=== PATIENT | female | born 1980 | race Caucasian/White ===

== ENCOUNTER → 2017-11-04 11:04 | Outpatient (CLI) | payer OTHER, SELFPAY ==
[2017-11-05 11:21] LABS: Toxoplasma Gondii IgG < 3.0 IU/mL (0.0-7.1)
[2017-11-05 20:08] LABS: Barbiturates Negative ng/mL (Cutoff=300); Cannabinoid Negative ng/mL (Cutoff=50); Cocaine Negative ng/mL (Cutoff=300); Phencyclidine Negative ng/mL (Cutoff=25)
[2017-11-08 13:00] LABS: Amphetamines Negative ng/mL (Cutoff=1000); Hep C Antibodies <0.1 s/co ratio (0.0-0.9); Opiates Negative ng/mL (Cutoff=300); Toxoplasma Gondii IgM < 3.0 AU/mL (0.0-7.9)
== END ==
LOC: WOBLAB 11:10
PROVIDERS: Visit Provider Obstetrics & Gynecology
DX: Z34.81 Encounter for supervision of other normal pregnancy, first trimester (principal)
CPT/HCPCS: 36415; 80307; 86777; 86778; 86803

== ENCOUNTER 2018-05-26 06:55 | Inpatient (IN) | payer OTHER, SELFPAY ==
[2018-05-26 07:26] VITALS: BMI 33.7
[2018-05-26] MEDS: Lactated Ringers 1,000 ML 50 ML IV ×2 (07:45→11:47)
[2018-05-26 07:53] LABS: Hematocrit 38.9 % (37-47); Mean Corp Hgb Conc 33.4 g/gl (32-36); Mean Corpuscular Hgb 31.9 pg (27.0-32.0); Mean Corpuscular Volume 95.6 fL (81-99); Mean Platelet Vol. 10.9 fl (6.2-12.0); Platelet Count 156 K/mm3 (150-450); RBC Distribution Width CV 13.6 % (11.6-14.6); RBC Distribution Width SD 45.8 fl (35.1-43.9); Red Blood Count 4.07 M/mm3 (4.2-5.4); Scan Indicated on CBC? Y/N NO; White Blood Count 9.6 K/mm3 (4.4-11.0)
[2018-05-26] MEDS: Oxytocin 30 units/NS 500 ml 30 UNITS/500 ML IV.SOLN IV (07:56)
[2018-05-26] MEDS: fentaNYL-bupivacaine (epidural) 100 ML BAG EPIDURAL (15:55)
[2018-05-26] MEDS: Oxytocin 30 units/NS 500 ml 30 UNITS/500 ML IV.SOLN 334 UNITS IV (20:07)
[2018-05-26] MEDS: Oxytocin 30 units/NS 500 ml 30 UNITS/500 ML IV.SOLN 167 UNITS IV (20:40)
--- NOTE | 2018-05-26 21:14 | PCM.OB.VAG ---
- Problem List (1) 40 weeks gestation of Status: Acute (2) (spontaneous vaginal delivery) Status: Acute Vaginal Delivery Maternal Presentation: Elective Induction Method of Induction: Pitocin, Amniotomy Amniotic Membrane Rupture Type: Artificial Amniotic Fluid Description: Thick meconium Final CLIFTON: 05/26/18 Final CLIFTON Source: US <20 weeks Gestational age: 40 Weeks and 0 Days Semmes doctor who attended delivery (if requested by OB): Vicki Swift Date of Procedure: 05/26/18 Pre-Operative Diagnosis: 40wga Post-Operative Diagnosis: 40wga Surgery/ Procedure Performed: Spontaneous Vaginal Delivery Anesthesiologist: Kevin Us Type of Anesthesia: Epidural Description of Procedure: Patient was FD/+2 station on my arrival. She pushed to deliver a vigorous female infant in direct OA. The was placed on the maternal abdomen and further attended by nursery personnel and Pediatric Hospitalist. The cord was doubly clamped and cut at approximately 4 minutes of life. Cord gases were obtained. The placenta delivered spontaneously and appeared intact on inspection. An intrauterine exam was performed. A first degree perineal laceration was repaired with 3-0 Vicryl Rapide. Sponge and needle counts were correct x 2. Presentation: Vertex Placental Delivery Description: Spontaneous Placenta Disposition: [facility] Cord Vessel Description: 3 Vessels Nuchal Cord Compression: Without compression Cord Gases drawn per routine: ABG, VBG Cord Entanglement: None Drain: Spence to straight drain Estimated Blood Loss: 350 ml Infant A gender: Female (1 minute): 8 (5 minute): 10 Episiotomy Description: None Laceration: Midline, Perineal Extension/lac, Vaginal Extension/lac, 1st degree Medications given after delivery: IV Pitocin Complications: None
--- NOTE | 2018-05-26 21:23 | DCINST_ITS ---
Discharge Diet: No Restrictions Discharge Activity: Return to Normal Activity, May Shower, May Take a Tub Bath May resume sexual activity in: 6 weeks Lifting Restrictions: 20 lb Call your doctor if you observe: Fever of 101 or Higher, Inability to urinate, Inability to have a bowel movement, Using more than one pad per hour, Shortness of breath, Chest pain, Calf discomfort, Uncontrolled pain, - - Severe persistent headache Additional Instructions: If you experience any of the following, contact your healthcare provider. * Bleeding that soaks a pad every hour for 2 hours * Fever 100.4 or higher * Unrelieved incision or abdominal pain * Swelling, redness, discharge or bleeding from your incision or episiotomy site * Your incision begins to separate * Problems urinating (including inability to urinate or burning while urinating). * Visual changes * Severe headache * Flu-like symptoms * Pain or redness in one of both of your breasts * Pain, warmth, tenderness or swelling in your legs, especially the calf area * Frequent nausea and vomiting * Symptoms of depression or anxiety If you experience any of the following, call 911 or go to the nearest Emergency Room. * Chest pain * Problems breathing * Seizure activity * Partial or complete paralysis of a body part, slurred speech, weakness or drooping of the face, or a sudden inability to walk or hold your balance Allergies/Adverse Reactions: Allergies codeine Allergy (Verified 05/26/18 07:29) Anaphylaxis latex Allergy (Verified 05/26/18 07:36) Rash Medications to take at Discharge Albuterol Sulfate [Proair Respiclick] 90 mcg IH Q4H PRN PRN 05/26/18 Cetirizine HCl [Zyrtec] 10 mg PO DAILY 05/26/18 Famotidine PRN 05/26/18 Fish Oil 1,000 mg Capsule 1,000 mg PO DAILY 05/26/18 Ibuprofen 600 mg PO TID PRN #30 tablet 05/26/18 Magnesium 250 mg PO DAILY 05/26/18 One Daily Tablet 1 tab PO DAILY 05/26/18 Vitamin B-6 100 mg PO DAILY 05/26/18 The following prescriptions were given: Ibuprofen 600 mg PO TID PRN #30 tablet PRN Reason: Pain Please Follow Up With: Phi Fisher MD When: 1-2 weeks Primary Care Physician: Brooks,Sherrie, PA [Primary Care Provider] - Test Results: Test results from this visit will be discussed in further detail at your follow- up appointment, if applicable.
[2018-05-26 23:47] VITALS: BP 100/29; PULSE 66; RESP 18; TEMP 36.6
[2018-05-27] MEDS: Ibuprofen 600 MG Tablet PO ×2 (01:45→16:41)
[2018-05-27 04:05] VITALS: BP 105/32; PULSE 128; RESP 18; TEMP 36.6
--- NOTE | 2018-05-27 09:14 | PCM.PN.OB ---
Patient Problems: Active and Suspected Problems 40 weeks gestation of (Acute) (spontaneous vaginal delivery) (Acute) Subjective: Patient without complaints. Minimal vaginal bleeding. Feeling well. - Physical Exam Vital Signs Temp Pulse Resp BP 97.9 F 128 H 18 105/32 L 05/27/18 04:05 05/27/18 04:05 05/27/18 04:05 05/27/18 04:05 Weight: 209 lb 3.499 oz Body Mass Index (BMI) 33.7 Intake and Output for Last 24 Hours 05/25/18 05/26/18 05/27/18 23:59 23:59 23:59 Intake Total 2805 / 2805 Output Total 0 / 2050 600 / 600 Balance 755 / 755 -600 / -600 Medical Necessity - Tobacco Use Smoking Status: Never smoker Assessment/Plan All Active Problems 40 weeks gestation of (Acute) (spontaneous vaginal delivery) (Acute) Doing well day #1. Continuing present care.
[2018-05-27 09:26] VITALS: BP 98/45; PULSE 78; RESP 16; TEMP 36.8; O2SAT 99
[2018-05-27] MEDS: Prenatal Vits Tablet 1 TABLET PO (10:00)
[2018-05-27] MEDS: Loratadine 10 MG Tablet PO (10:00)
[2018-05-27 12:00] VITALS: BP 96/45; PULSE 79; RESP 16; TEMP 36.7
[2018-05-27 16:00] VITALS: BP 104/52; PULSE 78; RESP 16; TEMP 36.7
[2018-05-27 20:09] VITALS: BP 99/54; PULSE 78; RESP 16; TEMP 36.4
[2018-05-28 01:21] VITALS: BP 100/63; PULSE 86; RESP 16; TEMP 37.2
[2018-05-28 04:00] VITALS: BP 127/31; PULSE 60; RESP 15
[2018-05-28] MEDS: Ibuprofen 600 MG Tablet PO (04:09)
--- NOTE | 2018-05-28 08:37 | PCM.PN.OB ---
Patient Problems: Active and Suspected Problems 40 weeks gestation of (Acute) (spontaneous vaginal delivery) (Acute) Subjective: No issues overnight. Denies heavy lochia. Voiding without difficulty. Bottlefeeding. Michelle feels well today. Objective: avss - Physical Exam General: Alert, Oriented x3, Cooperative, No apparent distress HEENT: Atraumatic, Normocephalic Lungs: Clear to auscultation, Normal air movement Cardiovascular: Regular rate, Regular Rhythm, Normal S1, Normal S2 Abdomen: Soft, Non Tender, Non-Distended, - - Fundus firm and nontender at 3 FW below umbilicus Extremities: No edema, No Calf Tenderness Neurological: Neuro grossly intact Psych/Mental Status: Normal Affect, Appropriate, Alert and oriented to time, place, person, mood and affect Vital Signs Temp Pulse Resp BP Pulse Ox 98.9 F 60 15 127/31 H 99 05/28/18 01:21 05/28/18 04:00 05/28/18 04:00 05/28/18 04:00 05/27/18 09:26 Oxygen Delivery Method Room Air Weight: 94.9 kg Body Mass Index (BMI) 33.7 Intake and Output for Last 24 Hours 05/26/18 05/27/18 05/28/18 23:59 23:59 23:59 Intake Total 2805 / 2805 Output Total 2049 / 2049 600 / 600 Balance 755 / 755 -600 / -600 Medical Necessity - Tobacco Use Smoking Status: Never smoker Assessment/Plan All Active Problems 40 weeks gestation of (Acute) (spontaneous vaginal delivery) (Acute) 38yo P2 PPD#2 s/p doing well. -B positive -Bottlefeeding -Routine care -d/c home today
[2018-05-28 10:00] VITALS: BP 103/44; PULSE 65; RESP 16; TEMP 36.3
[2018-05-28] MEDS: Loratadine 10 MG Tablet PO (10:24)
[2018-05-28] MEDS: Senna/Docusate Sodium 1 Tablet PO (10:24)
[2018-05-28] MEDS: Prenatal Vits Tablet 1 TABLET PO (10:27)
--- NOTE | 2018-05-28 12:24 | NURSING ---
1130 Discharged to car via wheelchair with baby in car seat in her lap. States she is eager to go home and feels able to care for herself and her baby. Denied questions or concerns.
== END 2018-05-28 11:30 | disposition home or self-care (01) | DRG 807 ==
PROVIDERS: Admitting Provider Obstetrics & Gynecology; Family Provider Physician Assistant; PCP Physician Assistant; Referring Provider Obstetrics & Gynecology; Visit Provider Obstetrics & Gynecology
DX: O77.0 Labor and delivery complicated by meconium in amniotic fluid (principal); Z37.0 Single live birth; Z3A.40 40 weeks gestation of pregnancy; O70.0 First degree perineal laceration during delivery
CPT/HCPCS: 59025; 59050; 85027; 86850; 86900; 99218; J7120; G0378

== ENCOUNTER → 2019-11-15 | Outpatient (CLI) | payer BC, SELFPAY ==
[2019-11-15 20:47] LABS: Chlamydia Trachomatis by PCR Negative (Negative)
[2019-11-15 20:48] LABS: Neisserai gonorrhoeae by PCR Negative (Negative); Probe Check PASS; Sample Adequacy Control PASS; Specimen Processing Control PASS
== END | disposition home or self-care (01) ==
PROVIDERS: Visit Provider Obstetrics & Gynecology
DX: Z11.3 Encounter for screening for infections with a predominantly sexual mode of transmission (principal)
CPT/HCPCS: 87491; 87591

== ENCOUNTER → 2020-05-07 | Outpatient (CLI) | payer BC, SELFPAY | END | disposition home or self-care (01) | LOC: LABSPEC 05-08 10:07 | PROVIDERS: Visit Provider Obstetrics & Gynecology | DX: Z36.85 Encounter for antenatal screening for Streptococcus B (principal) | CPT/HCPCS: 87081 ==

== ENCOUNTER → 2020-05-20 09:00 | Outpatient (CLI) | payer BC, SELFPAY | PROVIDERS: PCP Physician Assistant; Referring Provider Obstetrics & Gynecology; Visit Provider Obstetrics & Gynecology | DX: Z11.59 Encounter for screening for other viral diseases (principal) | CPT/HCPCS: 87635; C9803; U0003 ==

== ENCOUNTER 2020-05-29 14:30 | Outpatient (CLI) | payer BC, SELFPAY ==
[2020-05-29 14:48] VITALS: BMI 35.3
[2020-05-29 14:50] VITALS: BP 128/62; PULSE 74; TEMP 36.6; O2SAT 99
--- NOTE | 2020-06-17 09:21 | OB.TRI.NOTE ---
- Problem List (1) 39 weeks gestation of Status: Acute History of Present Illness Reason For Visit: NST Date of Service: 05/29/20 Final CLIFTON: 05/31/20 Final CLIFTON Source: US <20 weeks Gestational age: 39 Weeks and 5 Days History of Present Illness: presents for scheduled NST Allergies codeine Allergy (Verified 05/29/20 14:47) Anaphylaxis latex Allergy (Verified 05/29/20 14:47) Rash Physical Exam Vitals: Vital Signs Temp Pulse BP Pulse Ox 97.8 F 74 128/62 H 99 05/29/20 14:50 05/29/20 14:50 05/29/20 14:50 05/29/20 14:50 NST - FHR Rate Baby A Baseline: 120 Variability:: Moderate Accelerations:: 15 x 15 Decelerations:: None NST Reactive:: Yes FHR Category:: Category I Uterine Activity:: 1-2/10 min Impression/Plan 39 5/7wga, Cat I FHR -d/c home
== END 2020-05-29 15:25 | disposition home or self-care (01) ==
LOC: WPOUT 14:44 → OBT 14:44
PROVIDERS: PCP Physician Assistant; Referring Provider Obstetrics & Gynecology; Visit Provider Obstetrics & Gynecology
DX: Z34.93 Encounter for supervision of normal pregnancy, unspecified, third trimester (principal)
CPT/HCPCS: 59025

== ENCOUNTER 2020-05-30 12:20 | Inpatient (IN) | payer BC, SELFPAY ==
[2020-05-29 14:48] VITALS: BMI 35.3
[2020-05-30] VITALS (29 sets, daily range): BP systolic 94–125; BP diastolic 43–67; PULSE 57–90; TEMP 36.3–37.2; O2SAT 92–100; BMI 35.3
[2020-05-30] MEDS: Lactated Ringers 1,000 ML 50 ML IV (13:00)
[2020-05-30] MEDS: Oxytocin 30 units/NS 500 ml 30 UNITS/500 ML IV.SOLN IV (13:23)
[2020-05-30 13:27] LABS: Absolute Lymphocyte Count 1.22 X10^3/uL (0.83-4.51); Absolute Neutrophil Count 6.9 X10^3/uL (2.0-7.7); Basophil# 0.03 X10^3/uL; Basophil% 0.3 % (0-1); Eosinophil# 0.16 X10^3/uL; Eosinophils% 1.8 % (0-5); Hematocrit 37.5 % (37-47); Hemoglobin 11.9 g/dL (12.0-15.0); Lymphocyte # 1.22 X10^3/ul (4.0); Lymphocyte % 13.7 % (19-41); Mean Corp Hgb Conc 31.7 g/dL (32-36); Mean Corpuscular Hgb 29.8 pg (27.0-32.0); Mean Platelet Vol. 11.1 fl (6.2-12.0); Monocyte# 0.48 X10^3/uL; Monocyte% 5.4 % (0-10); NRBC Flagged by Analyzer 0 % (0-5); Neutrophil % 77.6 % (47-70); Platelet Count 166 K/mm3 (150-450); RBC Distribution Width CV 13.3 % (11.6-14.6); Red Blood Count 3.99 M/mm3 (4.2-5.4); White Blood Count 8.9 K/mm3 (4.4-11.0)
--- NOTE | 2020-05-30 18:03 | PCM.HPOB.BLA ---
History and Physical Date of Admission: 05/30/20 Chief complaint: Induction of labor at term History of present illness: 40-year-old at 39 weeks and 6 days with CLIFTON: 05/31/2020 by LMP confirmed with 11-week ultrasound arrives for induction of labor at term. Denies headache, visual changes, nausea vomiting, chest pain, shortness of breath, right upper quadrant pain. Patient states good movement. Obstetric history G1: 39-week male 08/09/2005 G2: SAB G3: 40-week female 05/26/2018 G4: Current Obstetric complications: AMA Past medical history: Asthma, migraines Past surgical history: None Medications:: vitamin, albuterol, Pepcid Allergies: Codeine, latex Social: Denies smoking, alcohol use, drug use Review of systems: Besides the above pertinent positives a full review of systems was performed and found to be negative Physical exam: Vital Signs Temp Pulse BP Pulse Ox 05/30/20 18:02 97.9 F 68 111/56 L 100 05/30/20 17:11 98.0 F 82 100 05/30/20 17:10 81 114/56 L 05/30/20 16:18 82 113/56 L 05/30/20 16:17 98.6 F 82 98 05/30/20 15:07 98.7 F 80 106/54 L 100 05/30/20 14:05 74 102/53 L 98 05/30/20 13:31 97.8 F 72 99 05/30/20 12:52 75 116/64 05/30/20 12:51 97.6 F L 75 100 General: Normal-appearing no acute distress HEENT: Normocephalic atraumatic no cervical lymphadenopathy Cardiac: Regular rate and rhythm no murmurs rubs or gallops Lungs: Clear to auscultation bilaterally no wheezes rales or crackles Abdomen: Soft, nontender, gravid. Positive bowel sounds Pelvic: Cervical exam /-2 FHT: 120/mod lauren/+accel/-decel [place]: few ctx Extremities: No peripheral edema normal peripheral pulses Psych: Normal affect normal demeanor nonpressured speech Mom's Labs & Results 05/30/20 05/30/20 13:00 13:00 WBC 8.9 RBC 3.99 L Hgb 11.9 L Hct 37.5 MCV 94.0 MCH 29.8 MCHC 31.7 L RDW Std Deviation 46.0 H RDW Coeff of Lauren 13.3 Plt Count 166 MPV 11.1 Immature Gran % (Auto) 1.200 H Neut % (Auto) 77.6 H Lymph % (Auto) 13.7 L [place]elope % (Auto) 5.4 Eos % (Auto) 1.8 Baso % (Auto) 0.3 Absolute Neuts (auto) 6.9 Absolute Lymphs (auto) 1.22 Nucleated RBC % 0 Blood Type B POSITIVE Antibody Screen NEGATIVE Labs Blood Type: B RH: POSITIVE RPR/VDRL/Syphilis Nonreactive Rubella status Immune HbSAg Negative Date Done: 12/19/19 Chlamydia Negative Gonorrhea Negative HIV/AIDS Non-Reactive Group B Strep: Negative Assessment plan: 40-year-old at 39 weeks and 6 days for induction of labor at term -Admit labor and delivery -CEFM -GBS neg -Pitocin induction -Anesthesia to see
[2020-05-30] MEDS: Lactated Ringers 500 ML 999 ML IV ×2 (19:35→22:38)
[2020-05-30] MEDS: fentaNYL-bupivacaine (epidural) 100 ML BAG EPIDURAL (20:08)
[2020-05-30] MEDS: Lactated Ringers 1,000 ML 200 ML IV (23:59)
[2020-05-31] VITALS (26 sets, daily range): BP systolic 86–112; BP diastolic 34–59; PULSE 64–85; RESP 16–18; TEMP 36.2–37.2; O2SAT 96–100
[2020-05-31] MEDS: fentaNYL-bupivacaine (epidural) 100 ML BAG EPIDURAL (00:15)
[2020-05-31] MEDS: Mag Hydrox/Al Hydrox/Simeth 30 ML UDC PO (04:34)
[2020-05-31] MEDS: Oxytocin 30 units/NS 500 ml 30 UNITS/500 ML IV.SOLN 334 UNITS IV (05:12)
--- NOTE | 2020-05-31 05:24 | OP.PCM_ITS ---
Vaginal Delivery Date of Procedure: 05/31/20 Pre-Operative Diagnosis: Term Post-Operative Diagnosis: Term Surgery/ Procedure Performed: Spontaneous Vaginal Delivery Type of Anesthesia: Epidural Description of Procedure: Normal spontaneous vaginal delivery of a male , vertex direct OP. Head and shoulders delivered with ease. Cord cut and clamped baby handed off to nursing. Placenta delivered via cord traction and fundal massage. Second- degree laceration noted and repaired in typical fashion. EBL 350 cc Apgars 8/9
--- NOTE | 2020-05-31 05:27 | DCINST_ITS ---
Discharge Diet: No Restrictions Discharge Activity: Return to Normal Activity, No Restrictions, May Drive, May Shower May resume sexual activity in: 2 weeks Weight Bearing Status: Weight bearing as tolerated Call your doctor if your incision/area has: Foul Smelling Discharge Call your doctor if you observe: Fever of 101 or Higher, Shortness of breath, Chest pain Additional Instructions: If you experience any of the following, contact your healthcare provider. * Bleeding that soaks a pad every hour for 2 hours * Fever 100.4 or higher * Unrelieved incision or abdominal pain * Swelling, redness, discharge or bleeding from your incision or episiotomy site * Your incision begins to separate * Problems urinating (including inability to urinate or burning while urinating). * Visual changes * Severe headache * Flu-like symptoms * Pain or redness in one of both of your breasts * Pain, warmth, tenderness or swelling in your legs, especially the calf area * Frequent nausea and vomiting * Symptoms of depression or anxiety If you experience any of the following, call 911 or go to the nearest Emergency Room. * Chest pain * Problems breathing * Seizure activity * Partial or complete paralysis of a body part, slurred speech, weakness or drooping of the face, or a sudden inability to walk or hold your balance Allergies/Adverse Reactions: Allergies codeine Allergy (Verified 05/29/20 14:47) Anaphylaxis latex Allergy (Verified 05/29/20 14:47) Rash Medications to take at Discharge Albuterol Sulfate [Proair Respiclick] 90 mcg IH Q4H PRN PRN 05/26/18 Cetirizine HCl [Zyrtec] 10 mg PO DAILY 05/26/18 Famotidine 20 mg PO DAILY 05/26/18 Fish Oil 1,000 mg Capsule 1,000 mg PO DAILY 05/26/18 Vits [Prenatabs FA ] 1 tab PO DAILY 05/29/20 Please Follow Up With: Trae Velásquez MD When: 6 weeks Primary Care Physician: Sherrie Brooks PA [Primary Care Provider] - Test Results: Test results from this visit will be discussed in further detail at your follow- up appointment, if applicable.
[2020-05-31] MEDS: Ibuprofen 600 MG Tablet PO ×3 (07:18→22:14)
--- NOTE | 2020-05-31 07:52 | NURSING ---
epidural catheter removed. blue tip intact.
[2020-05-31] MEDS: 0.9% Saline Lock 10 ML Syringe IV (08:12)
--- NOTE | 2020-05-31 11:41 | NURSING ---
void missed hat
[2020-05-31] MEDS: Acetaminophen 500 MG Tablet 1000 MG PO ×2 (15:57→23:48)
--- NOTE | 2020-05-31 16:05 | NURSING ---
PT UP TO BRP VOID 100 ML. STATES HAS NOT DRANK MUCH THIS AFTERNOON. RN ENCOURAGED TO DRINK FULL PITCHER.
--- NOTE | 2020-05-31 17:48 | NURSING ---
pt denies feeling dizzy or light headed. states blood pressure has run low throughout . pt's other vs remain within normal limits. fundus is firm, bleeding is wnl.
[2020-06-01 04:55] VITALS: BP 93/35; PULSE 69; RESP 16; TEMP 36.2
[2020-06-01] MEDS: Ibuprofen 600 MG Tablet PO (04:55)
[2020-06-01 08:00] VITALS: BP 101/49; PULSE 73; RESP 14; TEMP 36.3
--- NOTE | 2020-06-01 09:05 | PCM.PN.OB ---
Subjective: c/o pressure and discomfort from hemorrhoids. She has hx thrombosed hemorrhoid in college associated with IBS-C, since then these bother her periodically. Denies heavy lochia. She is . Desires discharge to home today. Objective: AVSS - Physical Exam Vitals/I&O's: Vital Signs Temp Pulse Resp BP Pulse Ox 97.3 F L 73 14 101/49 L 99 06/01/20 08:00 06/01/20 08:00 06/01/20 08:00 06/01/20 08:00 05/31/20 15:58 Oxygen Delivery Method Room Air Weight: 99.3 kg Body Mass Index (BMI) 35.3 Intake and Output for Last 24 Hours 05/30/20 05/31/20 06/01/20 23:59 23:59 23:59 Intake Total 1895.60 / 1895.60 2902.93 / 2902.93 Output Total 2400 / 2400 Balance 1895.60 / 1895.60 502.93 / 502.93 General: Alert, Oriented x3, Cooperative, No apparent distress HEENT: Atraumatic, Normocephalic Lungs: Clear to auscultation, Normal air movement Cardiovascular: Regular rate, Regular Rhythm, Normal S1, Normal S2 Abdomen: Soft, Non Tender, Non-Distended, - - Fundus firm and nontender Extremities: No edema, No Calf Tenderness Neurological: Neuro grossly intact Psych/Mental Status: Normal Affect, Appropriate, Alert and oriented to time, place, person, mood and affect Current Medications Acetaminophen (Acetaminophen 500 Mg Tablet) 1,000 mg PO Q8H PRN PRN PRN Reason: Pain Score 1-10 Last Admin: 05/31/20 23:48 Dose: 1,000 mg Documented by: Bisacodyl (Bisacodyl 10 Mg Suppository) 10 mg RECTAL UD PRN PRN Reason: If no BM Dibucaine (Dibucaine 30 Gm Tube) 1 applic TOPICAL TID PRN PRN; Protocol PRN Reason: Discomfort Hydrocortisone (Hydrocortisone 2.5% Crm) 1 applic TOPICAL TID PRN PRN; Protocol PRN Reason: Discomfort Ibuprofen (Ibuprofen 600 Mg Tablet) 600 mg PO Q6H PRN PRN PRN Reason: Pain Score 1-10 Last Admin: 06/01/20 04:55 Dose: 600 mg Documented by: Ondansetron HCl (Ondansetron 4 Mg/2 Ml Vial) 4 mg IV Q4H PRN PRN PRN Reason: Nausea Senna/Docusate Sodium (Senna/Docusate Sodium 1 Tablet) 1 - 2 tablet PO DAILY PRN PRN PRN Reason: Constipation Simethicone (Simethicone 80 Mg Tablet) 80 mg PO PCHS PRN PRN Reason: Indigestion/Stomach pain Sodium Chloride (0.9% Saline Lock 10 Ml Syringe) 5 - 15 ml IV UD PRN PRN Reason: SALINE FLUSH Last Admin: 05/31/20 08:12 Dose: 10 ml Documented by: Medical Necessity - Tobacco Use Smoking Status: Never smoker Assessment/Plan All Active Problems 40 weeks gestation of (Acute) (spontaneous vaginal delivery) (Acute) 40yo [id number] PPD#1 s/p -Hemorrhoidal care reviewed, pt encouraged to call office if worsening of sx -Rh positive -Routine care -d/c home today
--- NOTE | 2020-06-01 09:11 | DCINST_ITS ---
Discharge Diet: No Restrictions Discharge Activity: Return to Normal Activity, No Restrictions, May Drive, May Shower, May Take a Tub Bath May resume sexual activity in: 4-6 weeks Call your doctor if your incision/area has: Foul Smelling Discharge Call your doctor if you observe: Fever of 101 or Higher, Inability to urinate, Inability to have a bowel movement, Using more than one pad per hour, Shortness of breath, Chest pain, Calf discomfort, Uncontrolled pain Additional Instructions: If you experience any of the following, contact your healthcare provider. * Bleeding that soaks a pad every hour for 2 hours * Fever 100.4 or higher * Unrelieved incision or abdominal pain * Swelling, redness, discharge or bleeding from your incision or episiotomy site * Your incision begins to separate * Problems urinating (including inability to urinate or burning while urinating). * Visual changes * Severe headache * Flu-like symptoms * Pain or redness in one of both of your breasts * Pain, warmth, tenderness or swelling in your legs, especially the calf area * Frequent nausea and vomiting * Symptoms of depression or anxiety If you experience any of the following, call 911 or go to the nearest Emergency Room. * Chest pain * Problems breathing * Seizure activity * Partial or complete paralysis of a body part, slurred speech, weakness or drooping of the face, or a sudden inability to walk or hold your balance Allergies/Adverse Reactions: Allergies codeine Allergy (Verified 05/29/20 14:47) Anaphylaxis latex Allergy (Verified 05/29/20 14:47) Rash Medications to take at Discharge Albuterol Sulfate [Proair Respiclick] 90 mcg IH Q4H PRN PRN 05/26/18 Cetirizine HCl [Zyrtec] 10 mg PO DAILY 05/26/18 Fish Oil 1,000 mg Capsule 1,000 mg PO DAILY 05/26/18 Vits [Prenatabs FA ] 1 tab PO DAILY 05/29/20 Ibuprofen [Motrin] 600 mg PO Q8H PRN #30 tab 06/01/20 The following prescriptions were given: Ibuprofen [Motrin] 600 mg PO Q8H PRN #30 tab PRN Reason: Pain Score 1-10 Transmission Status: Pending to [id number] Please Follow Up With: Trae Velásquze MD When: 6 weeks Primary Care Physician: Sherrie Brooks, PA [Primary Care Provider] - Test Results: Test results from this visit will be discussed in further detail at your follow- up appointment, if applicable.
--- NOTE | 2020-06-01 10:30 | CASEMGMT ---
Social Work Assessment Labor and Delivery Unit Date of Referral: 05/31/2020 Time of Referral: 10:24 Referred By: Dr. Trae Velásquez Date of Intervention: 06/01/2020 Time of Intervention: 10:30 Reason for Referral: Mother of baby (MOB) with history of Anxiety. History obtained from: MOB, Father of baby (FOB), chart, nursing staff. Household composition: MOB, FOB, Yuriy Hernandez (age 15), Ashley Hernandez (age 2) and now this , Rob Hernandez have own home together. All three children share paternity and maternity. Patient's parent/guardian status: MOB and FOB (Jose Antonio Hernandez) have been for the past 3 years. was not planned but accepted. Medical History: MOB with history prior to this infant. MOB with history of Anxiety. MOB with vaginal delivery. born on 05/31/2019 with apgars of 8 and 9 at 1min and 5min. Infant with birthweight of 3807g. MOB plans to bottle feed infant. MOB with appropriate care visits. Infant to follow with Dr. Sherrie Brooks. Educational Status: MOB denies any issues/concerns with comprehension or understanding. Financial Status: MOB is a homemaker. FOB works full-time outside of the home and will have a few weeks off. Infant Supplies: MOB reports to have needed infant supplies including a car seat and crib etc. Childcare/Caregiver(s): MOB plans to be primary caregiver for and other children in the home. Other children are currently being cared for by family. Transportation: Denies any issues or concerns. Programs/Agencies Involved: No active community resources. MOB denies need for WIC, Help Me Grow etc. Children Services/Legal Issues: Denies history of children services or legal issues. Mental Health History: MOB with history of Anxiety. MOB denies current counseling or medication to manage mental health. MOB reports to ?self-regulate.? MOB able to identify positive coping skills to this director social welfare. MOB and this director social welfare engaged in conversation about depression signs and symptoms. MOB denies history of depression with prior pregnancies. MOB denies suicidal thoughts/plans/intents or history of. Substance Use History: MOB and FOB deny substance abuse/use. Maternal and Infant Drug Screens: None obtained. PHQ9: Did not trigger. Family/Social Stressors: MOB denies current family/social stressors. Support Systems: MOB reports to have needed support from extended family and FOB. Depression and Anxiety/Shaken Baby/Safe Sleeping: MOB provided with resources for depression/anxiety, shaken baby, safe sleeping, and [facility] resource [facility]. MOB with appropriate response to prompts for safe sleeping and shaken baby. ASSESSMENT: This director social welfare met with MOB, FOB and in room. MOB holding infant during interaction. MOB agreeable to speak with this director social welfare. MOB provided verbal permission for this director social welfare to speak openly with FOB present. MOB denies concerns for home going. MOB and FOB report to have connection with . MOB with appropriate and engaged affect throughout assessment. PLAN: Infant to discharge to home with MOB, FOB, and other siblings. No other services requested or indicated. Kindra OLIVAS, RIKY
== END 2020-06-01 11:35 | disposition home or self-care (01) | DRG 807 ==
PROVIDERS: Admitting Provider Obstetrics & Gynecology; PCP Physician Assistant; Referring Provider Obstetrics & Gynecology; Visit Provider Obstetrics & Gynecology
DX: O99.52 Diseases of the respiratory system complicating childbirth (principal); Z37.0 Single live birth; J45.909 Unspecified asthma, uncomplicated; Z3A.39 39 weeks gestation of pregnancy; O70.1 Second degree perineal laceration during delivery; O22.43 Hemorrhoids in pregnancy, third trimester; K58.1 Irritable bowel syndrome with constipation; O99.62 Diseases of the digestive system complicating childbirth
CPT/HCPCS: 59025; 59050; 76815; 85025; 86850; 86900; 86901; 99218; J7120; A4216; G0378

== ENCOUNTER → 2020-07-09 | Outpatient (CLI) | payer BC, SELFPAY ==
[2020-05-30 12:28] VITALS: BMI 35.3
[2020-07-17 08:19] LABS: HPV APTIMA, High Risk Positive (Negative); HPV Reflexed? YES, CHARGE PATIENT
== END | disposition home or self-care (01) ==
LOC: LABSPEC 07-11 08:54
PROVIDERS: PCP Physician Assistant; Visit Provider Obstetrics & Gynecology
DX: Z12.4 Encounter for screening for malignant neoplasm of cervix (principal); R87.612 Low grade squamous intraepithelial lesion on cytologic smear of cervix (LGSIL)
CPT/HCPCS: 87624; 88175; G0145

== ENCOUNTER 2021-10-09 14:37 | Outpatient (CLI) | payer BC, SELFPAY ==
[2021-10-09 15:04] LABS: Absolute Lymphocyte Count 1.31 X10^3/uL (0.83-4.51); Absolute Neutrophil Count 7.2 X10^3/uL (2.0-7.7); Basophil# 0.03 X10^3/uL; Basophil% 0.3 % (0-1); Eosinophil# 0.14 X10^3/uL; Eosinophils% 1.5 % (0-5); Hematocrit 38.4 % (37-47); Hemoglobin 13.2 g/dL (12.0-15.0); Lymphocyte # 1.31 X10^3/ul (0.83-4.51); Lymphocyte % 14.3 % (19-41); Mean Corp Hgb Conc 34.4 g/dL (32-36); Mean Corpuscular Hgb 31.4 pg (27.0-32.0); Mean Corpuscular Volume 91.4 fL (81-99); Mean Platelet Vol. 10.4 fl (6.2-12.0); Monocyte# 0.47 X10^3/uL; Monocyte% 5.1 % (0-10); NRBC Flagged by Analyzer 0 % (0-5); Neutrophil # 7.18 X10^3/uL (2.7-7.7); Neutrophil % 78.5 % (47-70); Platelet Count 218 K/mm3 (150-450); RBC Distribution Width CV 12.6 % (11.6-14.6); RBC Distribution Width SD 41.7 fl (35.1-43.9); White Blood Count 9.2 K/mm3 (4.4-11.0)
[2021-10-09 15:06] LABS: Color, Urine Yellow (Yellow); Glucose, Dipstick 50 mg/dl (Normal); Ketone-Dipstick Negative (Negative); Leukocyte Esterase-Dipstick 100 /ul (Negative); Nitrite-Dipstick Negative (Negative); Occult Blood-Urine Negative /ul (Negative); Protein-Dipstick Negative (Negative); Urine Bilirubin Dipstick Negative (Negative); Urine Clarity Clear (Clear); Urine Urobilinogen Normal (Normal)
[2021-10-09 15:21] LABS: Amphetamine Urine VISTA NEGATIVE (<1000 ng/mL); Barbiturate Urine VISTA NEGATIVE (< 200 ng/mL); Benzodiazepine Urine VISTA NEGATIVE (< 200 ng/mL); Cocaine Urine VISTA NEGATIVE (< 300 ng/mL); Ecstacy Urine VISTA NEGATIVE (< 500 ng/mL); Methadone Urine VISTA NEGATIVE (< 300 ng/mL); PCP Urine VISTA NEGATIVE (< 25 ng/mL); THC Urine VISTA NEGATIVE (< 50 ng/mL); Vista UDS pH Range 7
[2021-10-09 15:53] LABS: Thyroid Stim Hormone (TSH) 1.23 uIU/mL (0.358-3.74)
[2021-10-10 10:22] LABS: HIV - WCH Non-Reactive (Nonreactive); Hepatitis B Surface Antigen Non-Reactive (Nonreactive); Hepatitis C Antibody Non-Reactive (Nonreactive); Rubella IgG Reactive (Nonreactive); Syphilis Antibodies Non-reactive
[2021-10-12 09:08] LABS: Chlamydia By Nucleic Acid AMP Negative (Negative)
[2021-10-12 10:21] LABS: Gonococcus By Nucleic Acid AMP Negative (Negative)
[2021-10-15 14:13] LABS: HPV Reflexed? NOT INDICATED
== END 2021-10-09 23:59 | disposition home or self-care (01) ==
LOC: WOBLAB 14:38
PROVIDERS: PCP Physician Assistant; Visit Provider Obstetrics & Gynecology
DX: Z34.81 Encounter for supervision of other normal pregnancy, first trimester (principal); Z12.4 Encounter for screening for malignant neoplasm of cervix; Z11.3 Encounter for screening for infections with a predominantly sexual mode of transmission
CPT/HCPCS: 36415; 80307; 81002; 84443; 85025; 86703; 86762; 86780; 86803; 87086; 87340; 87491; 87591; 88175; G0145

== ENCOUNTER → 2022-02-02 | Outpatient (CLI) | payer BC, SELFPAY ==
[2022-02-02 14:18] LABS: Hematocrit 37.4 % (37-47); Hemoglobin 12.6 g/dL (12.0-15.0); Mean Corp Hgb Conc 33.7 g/dL (32-36); Mean Corpuscular Hgb 32.7 pg (27.0-32.0); Mean Corpuscular Volume 97.1 fL (81-99); Mean Platelet Vol. 10.7 fl (6.2-12.0); Platelet Count 189 K/mm3 (150-450); RBC Distribution Width CV 13.5 % (11.6-14.6); RBC Distribution Width SD 48.1 fl (35.1-43.9); Red Blood Count 3.85 M/mm3 (4.2-5.4); White Blood Count 8.6 K/mm3 (4.4-11.0)
[2022-02-02 14:23] LABS: Glucose Challenge Gest 1H 50g 62 mg/dL (70-140)
== END | disposition home or self-care (01) ==
LOC: WOBLAB 13:13
PROVIDERS: PCP Physician Assistant; Visit Provider Student in an Organized Health Care Education/Training Program
DX: Z34.83 Encounter for supervision of other normal pregnancy, third trimester (principal)
CPT/HCPCS: 36415; 82950; 85027

== ENCOUNTER → 2022-04-28 | Outpatient (CLI) | payer BC, SELFPAY | END | disposition home or self-care (01) | LOC: LABSPEC 10:57 | PROVIDERS: PCP Physician Assistant; Visit Provider Obstetrics & Gynecology | DX: Z36.85 Encounter for antenatal screening for Streptococcus B (principal) | CPT/HCPCS: 87081 ==

== ENCOUNTER → 2022-04-28 | Outpatient (CLI) | payer BC, SELFPAY ==
--- NOTE | 2022-04-28 11:11 | VDLE_ITS ---
Reason For Study: Pain in LLE RIGHT LEFT GSV is normal. GSV is normal. CFV is compressible, spontaneous, phasic, CFV is compressible, spontaneous, phasic, competent and demonstrates normal competent, and demonstrates normal augmentation. augmentation. FV is compressible, spontaneous, phasic, FV is compressible, spontaneous, phasic, competent and demonstrates normal competent and demonstrates normal augmentation. augmentation. POP V is compressible, spontaneous, phasic, T/P Trunk is compressible. competent and demonstrates normal PTV is compressible. augmentation. LT PerV is compressible. T/P Trunk is compressible. POP V is dilated and noncompressible with PTV is compressible. decreased flow. RT PerV is compressible. Gastroc V is dilated and noncompressible. Procedure This is a venous duplex using B-mode, color flow and spectral Doppler. Exam performed in department. The exam was diagnostic. A preliminary report was called and/or faxed to Dr. Velásquez. VL/Venous Duplex US - Obdulio Extrem Interpretation Summary Acute deep vein thrombosis is noted in the left popliteal vein and the left gas trocnemius vein Deep veins of the right lower extremity are patent and compressible segmentally . There is no evidence of right lower extremity deep vein thrombosis. The right [place] us vein appears patent and compressible segmentally Ordering Physician: Trae Velásquez Performed By: Mike Hagan RVAnthony
== END | disposition home or self-care (01) ==
LOC: CVS 11:06
PROVIDERS: PCP Physician Assistant; Referring Provider Obstetrics & Gynecology; Visit Provider Obstetrics & Gynecology
DX: M79.662 Pain in left lower leg (principal)
CPT/HCPCS: 93970

== ENCOUNTER 2022-05-14 07:05 | Inpatient (IN) | payer BC, SELFPAY ==
[2022-05-14] VITALS (54 sets, daily range): BP systolic 73–122; BP diastolic 36–61; PULSE 46–74; RESP 16; TEMP 35.9–37.3; O2SAT 86–100; BMI 35.0
[2022-05-14] MEDS: Lactated Ringers 1,000 ML 50 ML IV (07:43)
--- NOTE | 2022-05-14 07:57 | PCM.HP.BLA ---
History and Physical Date of Admission: 05/14/22 Chief complaint: Induction of labor AMA History present illness: 42-year-old G5, P3 at 39 weeks and 1 day with [place] 05/20/2022 arrives for induction of labor at term for AMA. Denies headache, visual changes, chest pain, shortness of breath, nausea vomit, right upper quadrant pain. Patient states good movement. is complicated by AMA, acute DVT previously on Lovenox prior to induction Obstetric history: G1: 39 weeks 8 pounds 4 ounces male G2: SAB G3: 40-week 7 pounds 12 ounces female G4: 40-week 8 pounds 13 ounces male G5: Current Past medical history: Acute left calf DVT Medications: Lovenox 1 mg/kg twice daily (stopped) Past surgical history: None Allergies: Codeine, latex Social history: Denies smoking, alcohol, drug use Review of systems: Besides above pertinent positives a full review of systems was performed and found to be negative Physical exam: Vitals: Pending General: Normal-appearing no acute distress HEENT: Normocephalic/atraumatic no cervical lymphadenopathy Cardiac/respiratory: No accessory muscles, nonlabored breathing Abdomen: Soft, nontender, gravid Extremities: No peripheral edema normal peripheral pulses Labs: Pending Assessment plan: 42-year-old G5, P3 at 39 weeks and 1 day for induction of labor with AMA Admit labor and delivery CEFM GBS negative Acute DVT: We will hold Lovenox throughout induction and restart after delivery Routine orders Anesthesia to see
[2022-05-14 08:02] LABS: Absolute Lymphocyte Count 1.45 X10^3/uL (0.83-4.51); Absolute Neutrophil Count 6.8 X10^3/uL (2.0-7.7); Basophil# 0.04 X10^3/uL; Basophil% 0.4 % (0-1); Eosinophil# 0.18 X10^3/uL; Hematocrit 38.3 % (37-47); Hemoglobin 12.9 g/dL (12.0-15.0); Lymphocyte # 1.45 X10^3/ul (0.83-4.51); Lymphocyte % 15.8 % (19-41); Mean Corp Hgb Conc 33.7 g/dL (32-36); Mean Corpuscular Hgb 30.8 pg (27.0-32.0); Mean Corpuscular Volume 91.4 fL (81-99); Mean Platelet Vol. 11.7 fl (6.2-12.0); Monocyte# 0.63 X10^3/uL; Monocyte% 6.9 % (0-10); NRBC Flagged by Analyzer 0 % (0-5); Neutrophil # 6.76 X10^3/uL (2.7-7.7); Neutrophil % 73.8 % (47-70); Platelet Count 177 K/mm3 (150-450); RBC Distribution Width CV 13.7 % (11.6-14.6); RBC Distribution Width SD 45.6 fl (35.1-43.9); Red Blood Count 4.19 M/mm3 (4.2-5.4); White Blood Count 9.2 K/mm3 (4.4-11.0)
[2022-05-14] MEDS: Oxytocin 15 Units/NS 250ml 15 UNITS/250 ML IV.SOLN 2 UNITS IV (08:08)
[2022-05-14] MEDS: LACTATED RINGERS 500 ML 999 ML IV ×2 (10:10→10:54)
[2022-05-14] MEDS: fentaNYL-bupivacaine (epidural) 100 ML BAG EPIDURAL (11:16)
--- NOTE | 2022-05-14 14:17 | EX.PCM.OBRPT ---
Vaginal Delivery Findings Description of Procedure: Normal spontaneous vaginal delivery of a viable female infant, vertex OUMAR. Head and shoulders delivered with ease. Cord cut and clamped. Baby and off to patient. Placenta delivered via cord traction and fundal massage. No lacerations noted. EBL 250 cc Apgars 8/9
[2022-05-14] MEDS: Oxytocin 15 Units/NS 250ml 15 UNITS/250 ML IV.SOLN 83 UNITS IV (14:37)
[2022-05-14] MEDS: Heparin Injection (Vial) 5,000 UNIT/ML VIAL 10000 UNIT SC (17:29)
[2022-05-14] MEDS: 0.9% Saline Lock 10 ML Syringe IV (17:40)
[2022-05-14] MEDS: Methylergonovine 0.2 MG/ML Ampul IM (18:29)
[2022-05-14] MEDS: Lactated Ringers 1,000 ML 999 ML IV (18:35)
[2022-05-14 18:58] LABS: Hematocrit 33.5 % (37-47); Hemoglobin 11.4 g/dL (12.0-15.0); Mean Corpuscular Hgb 31.8 pg (27.0-32.0); Mean Corpuscular Volume 93.3 fL (81-99); Mean Platelet Vol. 11.1 fl (6.2-12.0); Platelet Count 191 K/mm3 (150-450); RBC Distribution Width CV 13.7 % (11.6-14.6); RBC Distribution Width SD 47.2 fl (35.1-43.9); Red Blood Count 3.59 M/mm3 (4.2-5.4); White Blood Count 15.6 K/mm3 (4.4-11.0)
--- NOTE | 2022-05-14 19:00 | PN_ITS ---
Progress Note Called by nursing patient with heavy bleeding and atony. Ordered for Methergine IM. Arrived to patient's room patient responsive AOA x3. Fundus feels firm and below umbilicus. Bimanual exam performed and clots extracted. Bedside ultrasound showed overall thin endometrial lining but signs of retained products at fundus. Patient overall could not tolerate another bimanual exam or bedside D&C. Fundus remains firm. Patient given IV fluid bolus. Held TXA with history of acute DVT. EBL Per nursing 2372 cc. Blood pressure 80s over 40s consistent with her blood pressure during labor. Pulse 60s. After clots removed with bimanual exam patient symptoms improved feeling much improved less weakness. Bedside ultrasound still shows thin lower uterine segment lining but fundus with signs of retained products of conception. Uterus still firm. Educated patient on findings and need for suction dilation and curettage, patient states unders tanding and wished to proceed. All questions were answered and consent was signed. 1 unit of packed red blood cells transfused now, will continue evaluate for further units. Medical team called in for surgery and OR is being prepared for suction dilation and curettage now.
[2022-05-14 19:15] LABS: ALB/GLOB Ratio 0.7 RATIO (0.9-2.4); AST(SGOT) 18 U/L (15-37); Alanine Aminotransfer ALT/SGPT 20 U/L (13-56); Albumin, Serum 2.2 g/dL (3.2-5.0); Alkaline Phosphatase 88 U/L (45-117); Anion Gap 6 (5-15); BUN 6 mg/dL (7-18); BUN/Creat Ratio 7.3 RATIO (10-20); Calcium,Total 8.4 mg/dL (8.5-10.1); Chloride 110 mmol/L (98-107); Creatinine, Serum 0.83 mg/dL (0.55-1.02); EST Glomerular Filtration Rate 81 mL/min (>60); Est Glom Filt Rate - Afr Amer 98 mL/min (>60); Globulin 3.3 g/dL (2.2-4.2); Glucose 104 mg/dL (74-106); Potassium 3.4 mmol/L (3.5-5.1); Protein, Total 5.5 g/dL (6.4-8.2); Sodium Level 141 mmol/L (136-145)
--- NOTE | 2022-05-14 19:45 | POC_PTH ---
PATIENT: REANNA WALL LOC: [facility] U#:[id number] AGE/SX: 42/F ROOM: WP004 RE05/14/[address]: Dr. Trae Velásquez MD : 1980 BED: 1 DIS: 05/16/2022 SPEC #: [id number] RECD: 05/15/22 11:37 STATUS: ROMAINE RESmith #: [id number] JYOTI: 05/14/22 19:[address]: Trae Velásquez DEPT: SURGICAL PATHOLOGY RECD BY: Esmer Hooper ENTERED: 05/15/22 12:47 SP TYPE: PROD CONC OTHR DR: GIORGI Betancourt Tissues: Product of conception, NOS Procedures: Surgery Specimen Level IV HEADER OPERATION: Suction dilation and curettage PRE-OP DIAGNOSIS: Retained products TISSUE SUBMITTED: Products of conception MICROSCOPIC DIAGNOSIS Products of conception: Decidua, gestational endometrium and syncytiotrophoblasts. Fragments of myometrium. Fragments benign ecto- and endocervical mucosa. See comment. SJ:bhavana 05/18/2022 COMMENT Placental tissue is not identified. Clinical correlation and appropriate follow up are necessary. This case has been reviewed in consultation with Dr. Bailey who concurs with the above diagnosis. MICROSCOPIC DESCRIPTION Slides are reviewed. GROSS DESCRIPTION Received in fixative is one container labeled with the patient's name and designated products of conception. The specimen consists of multiple irregular fragments of dark bermudez soft tissue that in aggregate measure 8 x 6 x 1 cm. parts are not grossly recognized. Jute Bag Clipper portions are submitted in three cassettes. / AM:bhavana 05/15/2022 TC:5 Rest of the specimen is submitted in 7 more cassettes 4 to 10. / AM:bhavana 05/18/2022 CPT: 97549
--- NOTE | 2022-05-14 19:51 | NURSING ---
182 pt calls this nurse and states that she had a big gush of blood 1823 this nurse and lwaters to room to assess; pt found to have passed a large amount of lochia on her pads approximately 700 cc seen, uterine massage started, pt flat in bed, phone call placed to Dr Munguia and notified of blood loss- orders received for methergine and states that he is coming in. 1829 methergine given extra staff to room along with hemorrhage cart- O2 mask on and warm blankets. 1835 IV bolus started, Dr Munguia in room, attempting to obtain a BP but machine keeps reading weak signal and will not obtain a reading 1837 Dr Munguia doing vag exam and expressing clots from the uterus. ultrasound done by dr Munguia and placenta seen in upper uterus; decision made to take pt to OR for a D and C- Charge nurse and cloth grader supervisor made aware- lochia currently small, pt not actively bleeding at this time. 1845 second IV started after 3 attempts and blood work collected and sent. Still attempting to obtain a BP still reading weak signal - pulse ox on reading 100% an maternal pulse 61. 1850 anne cath inserted with 500 cc clear yellow return maternal pulse 63 and 100% PO- All pads measured and total EBL was [address] Munguia remains in room and is aware- 1 unit of PRBC ordered. 185 manual BP 80/40- consent signed for D and C. 1900 fundus remains firm u/2 with small lochia. 190 BP 90/58 [facility] 1915 pt taken to OR
--- NOTE | 2022-05-14 20:13 | PCM.OPRPT ---
Report of Operation Date of Procedure: 05/14/22 Pre-Operative Diagnosis: hemorrhage, retained products of conception Post-Operative Diagnosis: hemorrhage, retained products of conception Surgery/Procedure Performed:: Suction dilation and curettage Description of Surgical Findings:: Surgeon: Trae Velásquez MD Anesthesia: MAC EBL: 100 cc Urine output: 50 cc none IV fluids: 500 cc Complications: None Specimen: Retained products of conception Findings: Bedside ultrasound with signs of retained products at fundus preoperatively. Vagina and cervix with no signs of lacerations. 9 mm curved suction curettage used. Minimal to moderate amount of tissue obtained. Bedside ultrasound postoperatively with thin endometrial stripe, fundus clear of retained products. Consent: Patient status post vaginal delivery at term with hemorrhage and noted to have retained products of conception. For suction dilation curettage. Patient understands the risk of the procedure include but are not limited to visceral or vascular injury, prolonged hospitalization, blood loss need for transfusion, reoperation. Patient state understanding wish to proceed. All questions were answered and consent was signed Procedure: Patient was brought back to the OR where MAC anesthesia was found to be adequate. 200 mg of doxycycline IV given for infection prophylaxis. Patient was prepared and draped in a dorsolithotomy position with yellowfin stirrups. Weighted speculum was placed in the posterior aspect of the vagina and above findings were noted. 9 mm curved suction curettage was used under direct visualization with the assistance of bedside ultrasound. Products of conception obtained and sent to pathology. Vagina and cervix were reinspected with no lacerations noted. Good hemostasis was noted. Post procedure bedside ultrasound as noted above with an endometrial stripe. Continue to watch bleeding in the OR, no signs of bleeding all hemostatic. All counts correct x2. Patient tolerated procedure well and was brought to recovery in stable condition.
[2022-05-14] MEDS: Ibuprofen 600 MG Tablet PO (23:49)
[2022-05-15] MEDS: 0.9% Saline Lock 10 ML Syringe IV (00:05)
[2022-05-15 01:46] VITALS: BP 116/35; PULSE 69; RESP 16; TEMP 36.6; O2SAT 98
[2022-05-15 03:40] LABS: Absolute Lymphocyte Count 1.68 X10^3/uL (0.83-4.51); Absolute Neutrophil Count 9.5 X10^3/uL (2.0-7.7); Basophil# 0.03 X10^3/uL; Basophil% 0.2 % (0-1); Eosinophils% 1.6 % (0-5); Hematocrit 31.6 % (37-47); Hemoglobin 10.9 g/dL (12.0-15.0); Lymphocyte # 1.68 X10^3/ul (0.83-4.51); Lymphocyte % 13.5 % (19-41); Mean Corp Hgb Conc 34.5 g/dL (32-36); Mean Corpuscular Volume 92.7 fL (81-99); Mean Platelet Vol. 11.6 fl (6.2-12.0); Monocyte# 0.84 X10^3/uL; Monocyte% 6.8 % (0-10); NRBC Flagged by Analyzer 0 % (0-5); Neutrophil # 9.52 X10^3/uL (2.7-7.7); Neutrophil % 76.8 % (47-70); Platelet Count 157 K/mm3 (150-450); RBC Distribution Width SD 46.9 fl (35.1-43.9); Red Blood Count 3.41 M/mm3 (4.2-5.4); White Blood Count 12.4 K/mm3 (4.4-11.0)
[2022-05-15 05:51] VITALS: BP 96/42; PULSE 58; RESP 16; TEMP 36.4; O2SAT 97
[2022-05-15 08:58] VITALS: BP 92/42; PULSE 63; RESP 12; TEMP 36.7; O2SAT 96
[2022-05-15] MEDS: Prenatal Vits Tablet 1 TABLET PO (10:03)
[2022-05-15] MEDS: Famotidine 20 MG Tablet PO (10:03)
[2022-05-15 12:44] VITALS: BP 104/56; PULSE 79; RESP 13; TEMP 36.9
[2022-05-15] MEDS: Ibuprofen 600 MG Tablet PO ×2 (14:36→20:38)
[2022-05-15 16:35] VITALS: BP 108/42; PULSE 63; RESP 12; TEMP 36.8
[2022-05-15] MEDS: Enoxaparin 100 MG/ML Syringe SC (17:58)
--- NOTE | 2022-05-15 18:09 | PCM.PN.OB ---
Subjective Subjective Patient overall doing well. Some stiffness in left leg. Denies chest pain shortness of breath, weakness dizziness Objective Data Objective Data Vital Signs: Vital Signs Temp Pulse Resp BP Pulse Ox O2 Del Method 98.3 F 63 12 108/42 L 96 Room Air 05/15/22 16:35 05/15/22 16:35 05/15/22 16:35 05/15/22 16:35 05/15/22 08:58 05/15/22 12:44 Oxygen Delivery Method Room Air Weight: 217 lb 3.2 oz Body Mass Index (BMI) 35.0 Intake & Output: Intake and Output for Last 24 Hours 05/13/22 05/14/22 05/15/22 23:59 23:59 23:59 Intake Total 3883.64 / 3883.64 Output Total 2049 / 2049 2900 / 2900 Balance 1833.64 / 1833.64 -2900 / -2900 Lab / Micro Data Result Diagrams: 05/15/22 03:26 05/14/22 18:45 Labs: Laboratory Results - last 24 hr 05/14/22 07:40: Crossmatch See Detail 05/14/22 18:45: WBC 15.6 H, RBC 3.59 L, Hgb 11.4 L, Hct 33.5 L, MCV 93.3, MCH 31.8, MCHC 34.0, RDW Std Deviation 47.2 H, RDW Coeff of Lauren 13.7, Plt Count 191, MPV 11.1 05/14/22 18:45: Sodium 141, Potassium 3.4 L, Chloride 110 H, Carbon Dioxide 25.0, Anion Gap 6, BUN 6 L, Creatinine 0.83, Estim Creat Clear Calc 83.50, Est GFR (MDRD) Af Amer 98, Est GFR (MDRD) Non-Af 81, BUN/Creatinine Ratio 7.3 L, Glucose 104, Calcium 8.4 L, Total Bilirubin 0.40, AST 18, ALT 20, Alkaline Phosphatase 88, Total Protein 5.5 L, Albumin 2.2 L, Globulin 3.3, Albumin/Globulin Ratio 0.7 L 05/15/22 03:26: WBC 12.4 H, RBC 3.41 L, Hgb 10.9 L, Hct 31.6 L, MCV 92.7, MCH 32.0, MCHC 34.5, RDW Std Deviation 46.9 H, RDW Coeff of Lauren 14.0, Plt Count 157, MPV 11.6, Immature Gran % (Auto) 1.100 H, Neut % (Auto) 76.8 H, Lymph % (Auto) 13.5 L, [place] % (Auto) 6.8, Eos % (Auto) 1.6, Baso % (Auto) 0.2, Absolute Neuts (auto) 9.5 H, Absolute Lymphs (auto) 1.68, Nucleated RBC % 0 Micro: Microbiology 05/14/22 07:45 Nasal Secretion SARS-CoV-2 Antigen (Rapid) - Final Physical Exam Const alert, oriented x3, no apparent distress, average body habitus, healthy appearing and well nourished HEENT normocephalic and moist oral mucous membranes Eyes PERRL Neck full ROM Resp normal respiratory effort, no retractions and no use of accessory muscles Extremity normal to inspection, full ROM, no clubbing, cyanosis or edema, no calf tenderness and no pedal edema Extremity Narrative: No changes from prior exam Neuro moves all extremities and no focal motor deficits Psych mental status grossly normal, affect normal, speech normal and activity/motor behavior normal Assessment & Plan (1) (spontaneous vaginal delivery): PLAN: Patient seen and examined with left calf pain. Exam overall unchanged from initial diagnosis of acute DVT. +2 pedal pulses. No redness or erythema. Educated patient on findings. First dose of Lovenox 1 mg/kg twice daily now. For NSAIDs. Remain hydrated. Discussed regular ambulation, to ambulate now. Spence catheter to be removed. Patient states understanding, all questions answered.
[2022-05-15 20:34] VITALS: BP 110/50; PULSE 61; RESP 16; TEMP 36.1
[2022-05-16] MEDS: Ibuprofen 600 MG Tablet PO (02:23)
[2022-05-16 02:25] VITALS: BP 96/41; PULSE 57; RESP 15; TEMP 36.7
[2022-05-16] MEDS: Enoxaparin 100 MG/ML Syringe SC (06:10)
--- NOTE | 2022-05-16 06:53 | PCM.PN.OB ---
Subjective Subjective Patient feeling well this morning. Discomfort much improved. Feeling better with catheter out, was ambulating last night. Has not yet gotten out of this morning. States that swelling and pain are improved. No chest pain or shortness of breath. Objective Data Objective Data Vital Signs: Vital Signs Temp Pulse Resp BP Pulse Ox O2 Del Method 98.0 F 57 L 15 96/41 L 96 Room Air 05/16/22 02:25 05/16/22 02:25 05/16/22 02:25 05/16/22 02:25 05/15/22 08:58 05/16/22 02:25 Oxygen Delivery Method Room Air Weight: 98.52 kg Body Mass Index (BMI) 35.0 Intake & Output: Intake and Output for Last 24 Hours 05/14/22 05/15/22 05/16/22 23:59 23:59 23:59 Intake Total 3883.64 / 3883.64 Output Total 2049 / 2049 3500 / 3500 Balance 1833.64 / 1833.64 -3500 / -3500 Lab / Micro Data Attestation: I reviewed the patient's lab results. Result Diagrams: 05/15/22 03:26 05/14/22 18:45 Micro: Microbiology 05/14/22 07:45 Nasal Secretion SARS-CoV-2 Antigen (Rapid) - Final Physical Exam Const alert, oriented x3 and no apparent distress HEENT normocephalic Head and Scalp: atraumatic Neck full ROM Resp normal respiratory effort Cardio regular rate GI normal to inspection, nondistended, normoactive bowel sounds GI Narrative: Uterus 2 cm below umbilicus Back/Spine normal ROM Extremity normal to inspection and no calf tenderness Extremity Narrative: Minimal pedal edema Neuro no focal motor deficits and no sensory deficits noted Psych mental status grossly normal and affect normal Assessment & Plan (1) (spontaneous vaginal delivery): PLAN: day 2 status post . Complicated by hemorrhage secondary to retained portion of placenta. Patient received 1 unit of PRBCs. Hemoglobin is stable. Will repeat today as patient has been restarted on Lovenox. Patient states lochia has been minimal. Patient also complicated by acute left popliteal and gastrocnemius DVT. She is on Lovenox 1 mg/kg twice daily dosing. Was having some discomfort and swelling yesterday, improved today. Will have physical therapy see the patient this morning. Plan for discharge this afternoon. All questions answered. (2) DVT (deep venous thrombosis):
--- NOTE | 2022-05-16 06:55 | DCINST_ITS ---
Discharge Instructions Diet Discharge Diet: No restrictions Activity Discharge Activity: Return to Normal Activity and May Shower May resume sexual activity in: 4-6 weeks Weight Bearing Status: Weight bearing as tolerated Lifting Restrictions: No greater than 25 pounds Dressing / Incision Call your doctor if you observe: Fever of 101 or Higher, Change in Color, Inability to urinate, Using more than 1 pad per hour, Shortness of breath, Dizziness, Swelling in the ankles, Chest pain and Calf discomfort Follow Up Care Please Follow Up With: Trae Velásquez MD When: 2-week and 6-week visit Test Results: Test results from this visit will be discussed in further detail at your follow- up appointment, if applicable. Discharge Plan Admission Admit Date/Time: 05/14/22 07:05 Primary Reason for Your Visit: Attending Provider: Trae Velásquez Primary Care Provider: Sherrie Brooks Discharge Orders/Prescriptions Prescriptions: No Action Zyrtec 10 MG capsule 10 mg PO DAILY ProAir RespiClick 90 MCG aerosol powdr breath activated 90 mcg IH Q4H PRN PRN (Reason: Shortness Of Breath) Fish Oil 1,000 mg Capsule 1,000 mg PO DAILY [id number] 1 TABLET tablet 1 tab PO DAILY famotidine 20 mg Tablet 20 mg PO DAILY enoxaparin [Lovenox] 100 mg/mL Syringe 100 mg SUBCUT Q12H Referrals / Follow Up: Sherrie Brooks PA [Primary Care Provider] - Disposition Disposition (needs filled in before D/C Order can be placed): Home, Self Care
[2022-05-16 08:10] VITALS: BP 100/43; PULSE 83; RESP 16; TEMP 36.7; O2SAT 97
[2022-05-16] MEDS: 0.9% Saline Lock 10 ML Syringe IV (08:20)
[2022-05-16 08:28] LABS: Absolute Lymphocyte Count 1.54 X10^3/uL (0.83-4.51); Absolute Neutrophil Count 4.9 X10^3/uL (2.0-7.7); Basophil# 0.04 X10^3/uL; Basophil% 0.6 % (0-1); Eosinophils% 2.8 % (0-5); Hematocrit 30.9 % (37-47); Hemoglobin 10.3 g/dL (12.0-15.0); Lymphocyte # 1.54 X10^3/ul (0.83-4.51); Lymphocyte % 21.2 % (19-41); Mean Corp Hgb Conc 33.3 g/dL (32-36); Mean Corpuscular Hgb 30.7 pg (27.0-32.0); Mean Platelet Vol. 11.3 fl (6.2-12.0); Monocyte# 0.47 X10^3/uL; Monocyte% 6.5 % (0-10); NRBC Flagged by Analyzer 0 % (0-5); Neutrophil # 4.91 X10^3/uL (2.7-7.7); Neutrophil % 67.4 % (47-70); Platelet Count 175 K/mm3 (150-450); RBC Distribution Width CV 13.9 % (11.6-14.6); RBC Distribution Width SD 47.2 fl (35.1-43.9); Red Blood Count 3.36 M/mm3 (4.2-5.4); White Blood Count 7.3 K/mm3 (4.4-11.0)
== END 2022-05-16 12:35 | disposition home or self-care (01) | DRG 796 ==
PROVIDERS: Student in an Organized Health Care Education/Training Program; Admitting Provider Obstetrics & Gynecology; PCP Physician Assistant; Referring Provider Obstetrics & Gynecology; Visit Provider Obstetrics & Gynecology
PROC: 10D17ZZ Extraction of Products of Conception, Retained, Via Natural or Artificial Opening (ICD-10-PCS; principal; 2022-05-14 19:30)
DX: O72.1 Other immediate postpartum hemorrhage (principal); Z37.0 Single live birth; O87.1 Deep phlebothrombosis in the puerperium; I82.462 Acute embolism and thrombosis of left calf muscular vein; Z3A.39 39 weeks gestation of pregnancy
CPT/HCPCS: 36415; 59025; 59050; 80053; 85025; 85027; 86850; 86900; 86901; 86920; 87426; 88305; 97161; 99218; J7040; J7120; P9016; A4216; G0378; J2405

== ENCOUNTER 2023-03-04 11:31 | Day surgery (SDC) | payer BC, SELFPAY ==
[2023-03-04] VITALS (7 sets, daily range): BP systolic 59–116; BP diastolic 33–68; PULSE 48–64; RESP 16; TEMP 36.6–37.4; O2SAT 100; BMI 29.5
--- NOTE | 2023-03-04 12:04 | PCM.HP.BLA ---
History and Physical Date of Admission: 03/04/23 Chief complaint: Missed History present illness: 43-year-old scheduled for suction dilation curettage for missed . No medical she is seen since last seen. All questions answered and consent signed. Obstetric history: with a history of 4 vaginal deliveries Past medical history: Allergies, history of DVT Medications: Zyrtec Past surgical history: [place] tooth extraction, D&C Allergies: Codeine, latex Family history: No pertinent history Social history: Denies smoking, close, drug use Review of systems: Besides above pertinent positives a full review of systems was performed and found to be negative Physical exam: Vitals: Blood pressure 116/68 pulse 64 respiratory rate 16 temperature 98.3 ?F SPO2 100% on room air General: Normal appearing no acute distress HEENT: Normocephalic/atraumatic cervical lymphadenopathy Cardiac/respiratory: No use of accessory muscles, nonlabored breathing Abdomen: Soft, nontender, nondistended Extremities: No peripheral edema normal peripheral pulses Psych: Normal affect, demeanor nonpressured speech Assessment and plan: 43-year-old arrives for suction dilation curettage for missed . Patient understands risk of the procedure include but are not limited to visceral vascular injury, prolonged hospitalization, blood loss need for transfusion, reoperation. Patient stated understanding wish to proceed. Educated patient on options for genetic screening and burial options, patient states understanding and declines. Patient states understanding wish to proceed. All questions were answered and consent was signed.
[2023-03-04] MEDS: Lactated Ringers 1,000 ML 15 ML IV (12:11)
--- NOTE | 2023-03-04 13:30 | POC_PTH ---
PATIENT: REANNA WALL LOC: [facility] [place] U#:[id number] AGE/SX: 43/F ROOM: RE03/04/[address]: Dr. Trae Velásquez MD : 1980 BED: DIS: 03/04/2023 SPEC #: [id number] RECD: 03/04/23 14:29 STATUS: ROMAINE RESmith #: [id number] YJOTI: 03/04/23 13:[address]: Trae Velásquez DEPT: SURGICAL PATHOLOGY RECD BY: Esmer Hooper ENTERED: 03/05/23 08:06 SP TYPE: PROD CONC OTHR DR: GIORGI Betancourt Tissues: Product of conception, NOS Procedures: Surgery Specimen Level IV HEADER OPERATION: Dilation and curettage, suction PRE-OP DIAGNOSIS: Missed TISSUE SUBMITTED: Products of conception MICROSCOPIC DIAGNOSIS Products of conception, dilation and curettage: Decidua, gestational endometrium and immature chorionic villi (products of conception), clinically missed . SJ:bhavana 03/08/2023 MICROSCOPIC DESCRIPTION Slides are reviewed. GROSS DESCRIPTION Received in fixative is one container labeled with the patient's name and designated products of conception. The specimen consists of multiple fragments of pink hemorrhagic soft tissue that in aggregate measure 8.0 x 8.0 x 2.0 cm. tissue is not identified. Beef Grinder tissue is submitted in three cassettes. / ALBA:bhavana 03/05/2023 TC:5 CPT: 82547
[2023-03-04] MEDS: miSOPROStol 200 MCG Tablet (14:05)
--- NOTE | 2023-03-04 14:17 | DCINST_ITS ---
Discharge Instructions Diet Discharge Diet: No restrictions Activity Discharge Activity: Return to Normal Activity, May Drive and May Shower May resume sexual activity in: 6-8 weeks Weight Bearing Status: Weight bearing as tolerated Dressing / Incision Call your doctor if your incision/area has: Continuous Slow Oozing and Foul Smelling Discharge Call your doctor if you observe: Fever of 101 or Higher, Shortness of breath and Chest pain Follow Up Care Please Follow Up With: Trae Velásquez MD When: 2 weeks postoperatively Test Results: Test results from this visit will be discussed in further detail at your follow- up appointment, if applicable. Discharge Plan Admission Attending Provider: Trae Velásquez Primary Care Provider: Sherrie Brooks Discharge Orders/Prescriptions Prescriptions: No Action Zyrtec 10 MG capsule 10 mg PO DAILY ProAir RespiClick 90 MCG aerosol powdr breath activated 90 mcg IH Q4H PRN PRN (Reason: Shortness Of Breath) [id number] 1 TABLET tablet 1 tab PO DAILY famotidine 20 mg Tablet 20 mg PO DAILY Referrals / Follow Up: Sherrie Brooks PA [Primary Care Provider] - Disposition Disposition (needs filled in before D/C Order can be placed): Home, Self Care
--- NOTE | 2023-03-04 14:18 | PCM.OPRPT ---
Report of Operation Date of Procedure: 03/04/23 Pre-Operative Diagnosis: Missed Post-Operative Diagnosis: Missed Surgery/Procedure Performed:: Suction dilation curettage Description of Surgical Findings:: Surgeon: Trae Velásquez MD Anesthesia: MAC EBL: 100 cc Urine output: 200 cc IV fluids: 800 cc Complications: None Specimen: Products of conception Findings: Closed cervix. Moderate amounts of products of conception obtained. Patient noted with uterine atony bladder drained for 200 cc. Uterine massage performed. Pitocin 10 units in 500 cc of LR bolus given. Cytotec 1000 mcg UT given. Bedside ultrasound performed thin endometrial stripe noted and uterus noted to be firm, after prolonged monitoring bleeding noted to be controlled. Consent: Patient with missed elects for suction dilation and curettage. Patient understands risk of the procedure include but are not limited to visceral or vascular injury, prolonged hospitalization, blood loss and need for transfusion, reoperation. Patient state understanding and wished to proceed. All questions were answered and consent was signed. Procedure: Patient was brought back to the OR where MAC anesthesia was found to be adequate. 200 mg of IV doxycycline given for infection prophylaxis. Patient was prepared and draped in a dorsolithotomy position with yellowfin stirrups. A weighted speculum was placed in the posterior aspect of the vagina and cervical dilators were used to dilate the cervix. 7 mm curved suction curettage was used under direct visualization with the assistance of bedside ultrasound. As noted above moderate amounts of products of conception noted. Uterine atony noted, bladder drained for 200 cc. Uterine massage performed. Pitocin 10 units in 500 cc of LR bolus given. Cytotec 1000 mcg UT given. After treatment bedside ultrasound showed thin endometrial stripe and uterus noted to be firm, after prolonged monitoring bleeding well controlled. Good hemostasis noted all counts correct x2. Patient tolerated procedure well and was brought to recovery in stable condition.
[2023-03-04] MEDS: Acetaminophen 500 MG Tablet 1000 MG PO (15:13)
== END 2023-03-04 16:05 | disposition home or self-care (01) ==
LOC: SDC 11:33 → AC 11:34
PROVIDERS: PCP Physician Assistant; Referring Provider Obstetrics & Gynecology; Visit Provider Obstetrics & Gynecology
PROC: (CPT 59820; principal; 2023-03-04 13:15)
DX: O02.1 Missed abortion (principal); Z86.718 Personal history of other venous thrombosis and embolism
CPT/HCPCS: 59820; 01965; 88305; J7120; J2405